=== PATIENT | female | born 1965 | race Two or more races ===

== ENCOUNTER 2017-02-01 21:04 | Emergency (ER) | payer SELFPAY ==
[~2017-02-01] VITALS: Ht 165.1 cm; Wt 72.6 kg
--- NOTE | 2017-02-02 01:12 | Emergency Room Report ---
History of Present Illness General Chief Complaint: Lower Extremity Injury Source: Patient, EMS Present Illness HPI [id number] [address]IB[address]S from street c/o left foot pain. Patient points to very chronic, old scar on left foot, states it hurts. Denies recent trauma. Denies fever/ chills, rash to area. EMS endorses that patient is homeless. HPI is very limited as patient seems more intent on sleeping then talking to me. She ambulated from a chair in the hallway to a bed in and went to sleep. Allergies: Coded Allergies: No Known Allergies (Unverified , 02/01/17) Patient History Past Medical History: none, unable to obtain Past Surgical History: none Pertinent Family History: none Social History: Denies: alcohol use, drug use, smoking Last Menstrual Period: NONE Now: No Immunizations: UTD Reviewed Nursing Documentation: PMH: Agreed, PSxH: Agreed Nursing Documentation-PMH Past Medical History: No Stated History Review of Systems All Other Systems: negative except mentioned in HPI Physical Exam Vital Signs Date Time Temp Pulse Resp B/P Pulse Ox O2 Delivery O2 Flow Rate FiO2 02/01/17 20:57 98.1 88 18 130/96 98 Room Air Sp02 EP Interpretation: reviewed, normal General Appearance: normal inspection, well appearing, no apparent distress, alert, GCS 15, non-toxic, other - disheveled, unkempt, covered in dirt Head: normocephalic, atraumatic Eyes: bilateral eye EOMI, bilateral eye PERRL ENT: normal ENT inspection, hearing grossly normal, normal voice Neck: normal inspection, full range of motion, supple, no bony tend Respiratory: normal inspection, lungs clear, normal breath sounds, no respiratory distress, no retraction, no wheezing Cardiovascular #1: regular rate, rhythm, no edema Gastrointestinal: normal inspection, normal bowel sounds, non tender, soft, no guarding, no hernia Genitourinary: no CVA tenderness Musculoskeletal: normal inspection, back normal, normal range of motion, Binta' s Sign negative Neurologic: normal inspection, alert, oriented x3, responsive, customer service representative III-XII nml as tested, motor strength/tone normal, speech normal Psychiatric: normal inspection, judgement/insight normal, mood/affect normal Skin: normal inspection, normal color, other - Lateral aspect of left foot: small 1cm scab. No surrounding erythema or signs of infection. Both feet covered in layer of dirt Lymphatic: normal inspection Medical Decision Making Diagnostic Impression: Primary Impression: Foot pain Qualified Codes: M79.672 - Pain in left foot ER Course VSS. Afebrile. Atraumatic No sign of infection Patient refused oral analgesia Seems more interested in malingering for alf, food Ambulating in ED without difficulty DC Last Vital Signs Date Time Temp Pulse Resp B/P Pulse Ox O2 Delivery O2 Flow Rate FiO2 02/01/17 20:57 98.1 88 18 130/96 98 Room Air Status: improved Disposition: HOME, SELF-CARE Condition: Improved Patient Instructions: Medical Screening Exam JAKOB ESTRADA M.D. February 02, 2017 01:12
[2017-02-02 01:21] VITALS: BP 130/96
== END 2017-02-02 01:21 | disposition home or self-care (01) ==
LOC: EDBD 21:04 → EMR 21:30
DX: M79.672 Pain in left foot (principal); R23.4 Changes in skin texture
CPT/HCPCS: 99282